=== PATIENT | male | born 1985 | race Hispanic/Latino ===

== ENCOUNTER 2021-11-28 12:21 | Outpatient (CLI) | payer BC ==
[2021-12-10 14:25] LABS: Tissue Transglutaminase IgA SEE SCANNED RESULT; Tissue Transglutaminase IgA Ab SEE SCANNED RESULT
== END 2021-11-28 12:22 | disposition home or self-care (01) ==
LOC: LAB 12:21
PROVIDERS: ATTEND Student in an Organized Health Care Education/Training Program
DX: R19.7 Diarrhea, unspecified (principal)
CPT/HCPCS: 36415; 83516; 87493

== ENCOUNTER 2022-03-23 06:59 | Day surgery (SDC) | payer BC ==
[2022-03-23] MEDS ORDERED: SODIUM CHLORIDE 0.9% 1000 ML 1,000 ML IV SCH (07:00)
--- NOTE | 2022-03-23 07:55 | Anesthesia Day of Surgery ---
Anesthesia Day of Surgery - Day of Surgery Patient Examined: Yes Patient H&P Reviewed: Yes Patient is NPO: Yes
--- NOTE | 2022-03-23 07:55 | Anesthesia Consultation ---
Anesthesia Consult and Med Hx Date of service: 03/23/22 - Airway Anesthetic Teeth Evaluation: Good ROM Head & Neck: Adequate Mental/Hyoid Distance: Adequate Mallampati Class: Class II Intubation Access Assessment: Probably Good - Pre-Operative Health Status ASA Pre-Surgery Classification: ASA2 Proposed Anesthetic Plan: MAC - Cardiovascular System Hx Hypertension: No (elevated on DOS) - Central Nervous System Hx Psychiatric Problems: Yes (anxiety/depression) - Gastrointestinal Hx Ulcer: Yes Hx Gastroesophageal Reflux Disease: Yes
[2022-03-23] MEDS ORDERED: propofoL 200 MG/20 ML VIAL IV ONE ×2 (08:56→09:02)
[2022-03-23] MEDS ORDERED: LIDOCAINE MPF (2%) 20 MG/1 ML VIAL 5 ML ONE (08:57)
--- NOTE | 2022-03-23 09:27 | Operative Report ---
Operative Report Operative Report: DOS: 03/23/22 SURGEON: Tylor Bergeron MD COLONOSCOPY REPORT PREOPERATIVE AND POSTOPERATIVE DIAGNOSIS: Family history of high risk colon polyps DESCRIPTION OF PROCEDURE: The colonoscope was passed to the terminal ileum as identified by the ileal tissue. Scope was carefully withdrawn. Retroflexion was performed in the rectum. At the end of procedure, the scope was cleaned using normal technique. Vital signs monitored continuously throughout. SEDATION: Provided by [facility]. Quality of the prep was good COMPLICATIONS: None. ESTIMATED BLOOD LOSS: None FINDINGS: * Normal terminal ileum * Single small diverticulum in the sigmoid colon * Small nonbleeding nonthrombosed external hemorrhoid * Remainder of exam unremarkable RECOMMENDATIONS: Repeat screening colonoscopy in 5 years due to family history
[2022-03-23 13:46] VITALS: BP 125/85
--- NOTE | 2022-03-23 14:26 | Post Anesthesia Evaluation ---
- Post Anesthesia Evaluation Patient Participated: Yes Airway Patent: Yes Stable Respiratory Function: Yes Nausea/Vomiting: No Temp > 96.8F: Yes Pain Manageable: Yes Adequeate Hydration: Yes Anesthesia Complications: No
== END 2022-03-23 09:45 | disposition home or self-care (01) ==
LOC: GIO 06:59
PROVIDERS: ATTEND Student in an Organized Health Care Education/Training Program
DX: Z12.11 Encounter for screening for malignant neoplasm of colon (principal); K57.30 Diverticulosis of large intestine without perforation or abscess without bleeding; K64.8 Other hemorrhoids; K21.9 Gastro-esophageal reflux disease without esophagitis; F32.9 Major depressive disorder, single episode, unspecified; F41.9 Anxiety disorder, unspecified; Z83.71 Family history of colonic polyps; Z88.8 Allergy status to other drugs, medicaments and biological substances; Z79.899 Other long term (current) drug therapy; Z98.890 Other specified postprocedural states
CPT/HCPCS: 45378; J2704; J7030